=== PATIENT | female | born 1965 | race Caucasian/White ===

== ENCOUNTER 2021-10-02 16:04 | Observation (INO) ==
[2021-10-02] MEDS ORDERED: Aspirin 325 MG TABLET PO ONE (18:31)
[2021-10-02 18:36] LABS: Basophils % 0.5 %; Eosinophils # 0.1 K/mcL (0.0-0.6); Eosinophils % 1.2 %; Hematocrit 40.6 % (35.3-44.9); Hemoglobin 13.1 g/dL (11.5-15.4); Immature Granulocytes % 0.2 % (0-4); Mean Corpuscular HGB Conc 32.3 g/dL (31.6-35.5); Mean Corpuscular Hemoglobin 29.2 pg (28.0-33.3); Mean Corpuscular Volume 90.6 fL (83.0-100.0); Mean Platelet Volume 9.6 fL (9.4-12.4); Monocytes # 0.7 K/mcL (0.0-1.3); Monocytes % 8.1 %; Neutrophils # 5.3 K/mcL (1.6-8.9); Platelet Count 256 K/mcL (140-400); Red Blood Count 4.48 M/mcL (3.82-4.97); Red Cell Distribution Width 12.7 % (11.5-14.5); White Blood Count 8.1 K/mcL (4.3-11.1)
[2021-10-02 18:44] LABS: Prothrombin Time 11.6 Seconds (9.4-12.1)
[2021-10-02 18:46] LABS: Activated Partial Thrombo Time 29.6 Seconds (26.0-36.0)
[2021-10-02 18:51] LABS: BUN/Creatinine Ratio 23 (6-26); Blood Urea Nitrogen 26 mg/dL (6-20); Calcium 9.1 mg/dL (8.6-10.3); Carbon Dioxide 25 mEq/L (23-29); Chloride 109 mEq/L (98-107); Glucose 99 mg/dL (70-105); Osmolality,Calculated 297 (280-300); Sodium 141 mEq/L (136-145); eGFR For African Americans > 60 (> 60); eGFR For Non-African Americans 50 (> 60)
[2021-10-02 19:04] LABS: Troponin I 0.04 ng/mL (< 0.04)
[2021-10-02] MEDS ORDERED: *HR* Heparin 5,000 UNIT/ML VIAL IVP PRN ×2 (20:04)
[2021-10-02] MEDS ORDERED: *HR* Heparin 5,000 UNIT/ML VIAL IVP ONE (20:04)
[2021-10-02] MEDS: Heparin 25,000UNIT/250ML 1/2NS 25,000 UNIT/250 ML IV.SOLN IVC SCH (20:24)
[2021-10-02] MEDS ORDERED: Melatonin 3 MG TABLET PO PRN (20:55)
[2021-10-02] MEDS ORDERED: Nitroglycerin 0.4 MG TAB.SUBL SL PRN (20:55)
[2021-10-02] MEDS ORDERED: Naloxone 0.4 MG/ML INJ IVP PRN (20:55)
[2021-10-02] MEDS ORDERED: Ondansetron 4 MG/2 ML VIAL IVP PRN (21:00)
[2021-10-02] MEDS: Gabapentin 300 MG CAPSULE PO SCH (23:14)
[2021-10-02] MEDS: Acetaminophen 325 MG TABLET PO PRN (23:14)
[2021-10-03 02:57] LABS: Hematocrit 37.2 % (35.3-44.9); Mean Corpuscular HGB Conc 32.3 g/dL (31.6-35.5); Mean Corpuscular Volume 89.9 fL (83.0-100.0); Mean Platelet Volume 9.7 fL (9.4-12.4); Platelet Count 221 K/mcL (140-400); Red Blood Count 4.14 M/mcL (3.82-4.97); Red Cell Distribution Width 12.7 % (11.5-14.5); White Blood Count 5.8 K/mcL (4.3-11.1)
[2021-10-03 03:03] LABS: INR 1.1; Prothrombin Time 12.1 Seconds (9.4-12.1)
[2021-10-03 03:07] LABS: Activated Partial Thrombo Time 48.7 Seconds (26.0-36.0)
[2021-10-03 03:19] LABS: BUN/Creatinine Ratio 24 (6-26); Blood Urea Nitrogen 27 mg/dL (6-20); Calcium 8.7 mg/dL (8.6-10.3); Carbon Dioxide 28 mEq/L (23-29); Chloride 107 mEq/L (98-107); Cholesterol 115 mg/dL (< 200); Glucose 112 mg/dL (70-105); HDL Cholesterol 38 mg/dL (40-59); LDL Cholesterol,Calculated 51 mg/dL (< 100); Osmolality,Calculated 298 (280-300); Potassium 3.4 mEq/L (3.5-5.1); Sodium 141 mEq/L (136-145); Triglycerides 129 mg/dL (< 150); eGFR For African Americans > 60 (> 60); eGFR For Non-African Americans 51 (> 60)
[2021-10-03 07:17] LABS: Troponin I 0.03 ng/mL (< 0.04)
[2021-10-03] MEDS ORDERED: *HR* FentaNYL (PF) 100 MCG/2 ML VIAL ONE (14:04)
[2021-10-03] MEDS ORDERED: *HR* Midazolam HCl 2 MG/2 ML VIAL ONE (14:04)
[2021-10-03] MEDS ORDERED: Nitroglycerin 1,000 MCG/5 ML VIAL IV ONE (14:05)
[2021-10-03] MEDS ORDERED: ISOVUE-370 200 ML INFUS..BTL ONE (14:05)
[2021-10-03] MEDS ORDERED: *HR* Heparin 10,000 UNIT/10 ML VIAL ONE (14:05)
[2021-10-03] MEDS ORDERED: Heparin 1,000 UNITS/500 mL 500 ML ONE (14:05)
[2021-10-03] MEDS ORDERED: 0.9 % Sodium Chloride 2,000 ML ONE (14:05)
[2021-10-03] MEDS ORDERED: Perflutren Lipid Microsphere 1.3 ML in 0.9 % Sodium Chloride 8.7 ML IVP PRN (15:23)
[2021-10-03] MEDS: Heparin 25,000UNIT/250ML 1/2NS 25,000 UNIT/250 ML IV.SOLN IVC SCH (15:30)
[2021-10-03] MEDS: Acetaminophen 325 MG TABLET PO PRN (16:03)
[2021-10-03] MEDS: Gabapentin 300 MG CAPSULE PO SCH (21:04)
[2021-10-04] MEDS: Acetaminophen 325 MG TABLET PO PRN (05:14)
[2021-10-04] MEDS ORDERED: Loratadine 10 MG TABLET PO SCH (09:00)
[2021-10-04] MEDS ORDERED: Gabapentin 100 MG CAPSULE PO SCH (09:00)
[2021-10-04 10:15] VITALS: PULSE 64
[2021-10-04 14:40] VITALS: BP 126/78; TEMP 98.1; O2SAT 94
== END 2021-10-04 15:45 | disposition home or self-care (01) ==
LOC: 3BNU 16:04 → EMEROOARM 16:04 → 3BNU 22:10
PROVIDERS: ADMIT Internal Medicine; ATTEND Internal Medicine